=== PATIENT | male | born 1995 | race Caucasian/White ===

== ENCOUNTER 2018-06-13 00:21 | Inpatient (IN) | payer MEDICAID ==
[~2018-06-13] VITALS: Ht 172.7 cm; Wt 103.0 kg
[2018-06-13] MEDS ORDERED: QUET300T2 PO (00:47)
[2018-06-13] MEDS ORDERED: SERT50TA12 PO (00:47)
[2018-06-13 01:53] LABS: BASOPHILS % (AUTO) 1.2 % (0.0-2.0); EOSINOPHILS % (AUTO) 0.6 % (1.0-6.0); HEMATOCRIT 49.8 % (41-53); LYMPHOCYTES % (AUTO) 28.6 % (22.0-44.0); MEAN CORPUSCULAR HEMOGLOBIN 28.9 pg (26.0-34.0); MEAN CORPUSCULAR HGB CONC 36.1 G/dL (31.0-37.0); MEAN CORPUSCULAR VOLUME 80 fL (80-100); MONOCYTES % (AUTO) 9.3 % (2.0-9.0); NEUTROPHILS # (AUTO) 6.4 K/uL (1.8-7.7); NEUTROPHILS % (AUTO) 60.3 % (40.0-70.0); PLATELET COUNT (AUTO) 375 K/uL (150-450); RED BLOOD CELL COUNT(AUTO) 6.22 MIL/uL (4.50-5.90); RED CELL DISTRIBUTION WIDTH 14.8 % (11.5-14.5)
[2018-06-13 02:00] LABS: ANION GAP 13 mmol/L (8-16); CALCIUM, TOTAL 9.1 mg/dL (8.8-10.5); CARBON DIOXIDE 26 mmol/L (22-29); CHLORIDE 94 mmol/L (98-107); CREATININE 0.94 mg/dL (0.60-1.30); GLOMERULAR FILTR. RATE CALC > 60 mL/min (>60); GLUCOSE,RANDOM 373 mg/dL (70-110); POTASSIUM 4.1 mmol/L (3.5-5.1); SODIUM SERUM 133 mmol/L (136-145); UREA NITROGEN, BLOOD 15 mg/dL (7-18)
[2018-06-13 02:01] LABS: HEMOGLOBIN 17.8 g/dL (13.5-17.5)
[2018-06-13 02:06] LABS: ALBUMIN 4.3 g/dL (3.4-5.0); ALKALINE PHOSPHATASE 102 U/L (46-116)
[2018-06-13 02:41] LABS: ALANINE AMINOTRANSFERASE 85 U/L (12-78); ASPARTATE AMINOTRANSFERASE 46 U/L (15-37); TOTAL PROTEIN, SERUM 7.3 g/dL (6.4-8.2)
[2018-06-13] MEDS ORDERED: PERTUSS(ACELL),DIPH,TET VAC/PF 0.5 ML VIAL IM ONE (04:00)
[2018-06-13] MEDS ORDERED: SODIUM CHLORIDE 0.9% 1,000 ML IV ONE ×2 (04:25→04:30)
[2018-06-13 04:29] LABS: GLUCOSE,POINT OF CARE 318 MG/DL (70-110)
[2018-06-13] MEDS ORDERED: LORazepam 2 MG TABLET PO PRN (06:00)
[2018-06-13] MEDS ORDERED: HALOPERIDOL 5 MG TABLET PO PRN (06:00)
[2018-06-13 06:14] LABS: HDL CHOLESTEROL 10 mg/dL (40-60); TRIGLYCERIDES 179 mg/dL (15-150)
[2018-06-13] MEDS ORDERED: INSULIN REGULAR, HUMAN 100 UNITS/ML IVP ONE (06:15)
[2018-06-13 06:19] LABS: GLUCOSE,POINT OF CARE 301 MG/DL (70-110)
[2018-06-13 06:31] LABS: LDL CHOL (CALC.) 4 mg/dL (0-130)
[2018-06-13 06:56] LABS: CHOLESTEROL < 50 mg/dL (131-200)
[2018-06-13 08:54] LABS: GLUCOSE,POINT OF CARE 365 MG/DL (70-110)
[2018-06-13] MEDS ORDERED: INSULIN LISPRO 100 UNITS/ML SQ PRN (09:45)
[2018-06-13] MEDS ORDERED: INSULIN REGULAR, HUMAN 100 UNITS/ML SQ ONE (09:45)
[2018-06-13] MEDS ORDERED: GLUCAGON,HUMAN RECOMBINANT 1 MG VIAL IM PRN ×2 (09:45→22:15)
[2018-06-13 16:29] LABS: GLUCOSE,POINT OF CARE 342 MG/DL (70-110)
[2018-06-13 19:30] VITALS: BP 147/88
[2018-06-13 19:39] LABS: GLUCOMETER DEV NAME(LOC) BV3N.; GLUCOSE,POINT OF CARE 301 MG/DL (70-110)
[2018-06-13] MEDS ORDERED: PNEUMOCOCCAL VACCINE POLYVALENT 0.5 ML VIAL [PPSV23] IM ONE (20:15)
[2018-06-13] MEDS: ZOLPIDEM TARTRATE 10 MG TABLET PO PRN (21:40)
[2018-06-13 22:15] LABS: GLUCOMETER DEV NAME(LOC) BV3N.; GLUCOSE,POINT OF CARE 264 MG/DL (70-110)
[2018-06-14 06:10] VITALS: BP 136/88
[2018-06-14 06:16] LABS: GLUCOMETER DEV NAME(LOC) BV3N.; GLUCOSE,POINT OF CARE 201 MG/DL (70-110)
[2018-06-14] MEDS: INSULIN LISPRO 100 UNITS/ML SQ PRN ×4 (06:39→20:22)
[2018-06-14 08:41] LABS: HEMOGLOBIN A1C 9.6 % (4.5-6.2)
[2018-06-14 09:10] VITALS: BP 134/88
[2018-06-14 11:24] LABS: CHOL/HDL RATIO 16.3 (4.2-7.3); CHOLESTEROL 244 mg/dL (131-200); FREE T4 (FREE THYROXINE) 1.09 ng/dL (0.76-1.46); HDL CHOLESTEROL 15 mg/dL (40-60); TRIGLYCERIDES 1354 mg/dL (15-150)
[2018-06-14 11:50] LABS: GLUCOMETER DEV NAME(LOC) BV3N.; GLUCOSE,POINT OF CARE 331 MG/DL (70-110)
[2018-06-14 16:28] VITALS: BP 131/84
[2018-06-14 16:54] LABS: GLUCOMETER DEV NAME(LOC) BV3N.; GLUCOSE,POINT OF CARE 270 MG/DL (70-110)
[2018-06-14] MEDS: QUEtiapine FUMARATE 300 MG TABLET PO SCH (20:21)
[2018-06-14] MEDS: ZOLPIDEM TARTRATE 10 MG TABLET PO PRN (20:21)
[2018-06-14] MEDS ORDERED: SERTRALINE HCL 100 MG TABLET PO SCH (21:00)
[2018-06-14] MEDS ORDERED: CloNIDine HCL 0.1 MG TABLET PO PRN (21:15)
[2018-06-14] MEDS ORDERED: PETROLATUM,WHITE 28 GM JELLY TP PRN (21:15)
[2018-06-14] MEDS ORDERED: ACETAMINOPHEN 325 MG TABLET PO PRN (21:15)
[2018-06-14] MEDS ORDERED: BENZOCAINE/MENTHOL LOZENGE MM PRN (21:15)
[2018-06-14] MEDS ORDERED: DOCUSATE SODIUM 100 MG CAPSULE PO PRN (21:15)
[2018-06-14] MEDS ORDERED: IBUPROFEN 600 MG TABLET PO PRN (21:15)
[2018-06-14] MEDS ORDERED: MAG HYDROX/AL HYDROX/SIMETH ES 30 ML SUSPENSION UDCUP PO PRN (21:15)
[2018-06-14] MEDS ORDERED: ALBUTEROL SULFATE HFA 90 MCG/PUFF 8 GM INHALER IH PRN (21:15)
[2018-06-14] MEDS ORDERED: MAGNESIUM HYDROXIDE SUSPENSION 30 ML UDCUP PO PRN (21:15)
[2018-06-14] MEDS ORDERED: BACITRACIN 28.4 GM OINTMENT TP PRN (21:15)
[2018-06-14] MEDS ORDERED: ONDANSETRON HCL 4 MG TABLET PO PRN (21:15)
[2018-06-14] MEDS ORDERED: OMEPRAZOLE 20 MG CAPSULE PO PRN (21:15)
[2018-06-14] MEDS ORDERED: LOPERAMIDE HCL 2 MG CAPSULE PO PRN (21:15)
[2018-06-14 21:58] LABS: GLUCOMETER DEV NAME(LOC) BV3N.; GLUCOSE,POINT OF CARE 260 MG/DL (70-110)
[2018-06-15] MEDS: INSULIN LISPRO 100 UNITS/ML SQ PRN ×4 (06:29→21:12)
[2018-06-15 06:36] VITALS: BP 129/82
[2018-06-15 07:29] LABS: GLUCOMETER DEV NAME(LOC) BV3N.; GLUCOSE,POINT OF CARE 184 MG/DL (70-110)
[2018-06-15 08:10] VITALS: BP 139/79
[2018-06-15] MEDS: OMEGA-3/DHA/EPA/FISH OIL 1,000 MG CAPSULE PO SCH (09:19)
[2018-06-15 11:24] LABS: GLUCOMETER DEV NAME(LOC) BV3N.; GLUCOSE,POINT OF CARE 268 MG/DL (70-110)
[2018-06-15 16:24] VITALS: BP 114/61
[2018-06-15 17:00] LABS: GLUCOMETER DEV NAME(LOC) BV3N.; GLUCOSE,POINT OF CARE 264 MG/DL (70-110)
[2018-06-15] MEDS ORDERED: NICOTINE 21 MG/24 HOUR PATCH TD PRN (20:30)
[2018-06-15] MEDS ORDERED: SERTRALINE HCL 100 MG TABLET PO SCH (21:00)
[2018-06-15] MEDS: SIMVASTATIN 10 MG TABLET PO SCH (21:04)
[2018-06-15] MEDS: ZOLPIDEM TARTRATE 10 MG TABLET PO PRN (21:06)
[2018-06-15] MEDS: QUEtiapine FUMARATE 300 MG TABLET PO SCH (21:06)
[2018-06-15 21:19] LABS: GLUCOMETER DEV NAME(LOC) BV3N.; GLUCOSE,POINT OF CARE 229 MG/DL (70-110)
[2018-06-16 00:08] VITALS: BP 136/86
[2018-06-16] MEDS: INSULIN LISPRO 100 UNITS/ML SQ PRN ×4 (06:12→21:00)
[2018-06-16 07:09] LABS: GLUCOMETER DEV NAME(LOC) BV3N.; GLUCOSE,POINT OF CARE 178 MG/DL (70-110)
[2018-06-16 08:26] VITALS: BP 137/85
[2018-06-16 08:37] LABS: BAND NEUTROPHILS % (MANUAL) 0 % (0-5)
[2018-06-16] MEDS: OMEGA-3/DHA/EPA/FISH OIL 1,000 MG CAPSULE PO SCH (08:46)
[2018-06-16 08:52] LABS: HEMATOCRIT 44.9 % (41-53); HEMOGLOBIN 15.5 g/dL (13.5-17.5); MEAN CORPUSCULAR HEMOGLOBIN 27.7 pg (26.0-34.0); MEAN CORPUSCULAR HGB CONC 34.5 G/dL (31.0-37.0); MEAN CORPUSCULAR VOLUME 80 fL (80-100); PLATELET COUNT (AUTO) 283 K/uL (150-450); RED BLOOD CELL COUNT(AUTO) 5.59 MIL/uL (4.50-5.90); RED CELL DISTRIBUTION WIDTH 14.6 % (11.5-14.5)
[2018-06-16 09:19] LABS: ANION GAP 15 mmol/L (8-16); CALCIUM, TOTAL 9.5 mg/dL (8.8-10.5); CARBON DIOXIDE 24 mmol/L (22-29); CHLORIDE 101 mmol/L (98-107); CREATININE 0.92 mg/dL (0.60-1.30); GLOMERULAR FILTR. RATE CALC > 60 mL/min (>60); GLUCOSE,RANDOM 217 mg/dL (70-110); PHOSPHORUS 4.1 mg/dL (2.5-4.9); POTASSIUM 3.9 mmol/L (3.5-5.1); SODIUM SERUM 140 mmol/L (136-145); UREA NITROGEN, BLOOD 16 mg/dL (7-18)
[2018-06-16 09:23] LABS: BASOPHILS % (MANUAL) 1 % (0-2); EOSINOPHILS % (MANUAL) 1 % (1-6); LYMPHOCYTES % (MANUAL) 25 % (22-44); MONOCYTES % (MANUAL) 4 % (2-9); SEGMENTED NEUTROPHILS % 69 % (40-70)
[2018-06-16 11:34] LABS: GLUCOMETER DEV NAME(LOC) BV3N.; GLUCOSE,POINT OF CARE 239 MG/DL (70-110)
[2018-06-16 16:35] LABS: GLUCOMETER DEV NAME(LOC) BV3N.; GLUCOSE,POINT OF CARE 205 MG/DL (70-110)
[2018-06-16 16:53] VITALS: BP 136/80
[2018-06-16 20:54] LABS: GLUCOMETER DEV NAME(LOC) BV3N.; GLUCOSE,POINT OF CARE 228 MG/DL (70-110)
[2018-06-16] MEDS ORDERED: SERTRALINE HCL 100 MG TABLET PO SCH (21:00)
[2018-06-16] MEDS: QUEtiapine FUMARATE 300 MG TABLET PO SCH (21:44)
[2018-06-16] MEDS: SIMVASTATIN 10 MG TABLET PO SCH (21:44)
[2018-06-16] MEDS: ZOLPIDEM TARTRATE 10 MG TABLET PO PRN (21:45)
[2018-06-17 06:10] LABS: GLUCOMETER DEV NAME(LOC) BV3N.; GLUCOSE,POINT OF CARE 137 MG/DL (70-110)
[2018-06-17 08:25] VITALS: BP 136/71
[2018-06-17] MEDS: OMEGA-3/DHA/EPA/FISH OIL 1,000 MG CAPSULE PO SCH (09:20)
[2018-06-17] MEDS ORDERED: OMEG-135 PO (10:28)
[2018-06-17] MEDS ORDERED: QUET300T2 PO (10:28)
[2018-06-17] MEDS ORDERED: SIMV-259 PO (10:28)
[2018-06-17] MEDS ORDERED: SERT100T12 PO (10:28)
[2018-06-17] MEDS: INSULIN LISPRO 100 UNITS/ML SQ PRN (11:19)
[2018-06-17 11:25] LABS: GLUCOMETER DEV NAME(LOC) BV3N.; GLUCOSE,POINT OF CARE 260 MG/DL (70-110)
== END 2018-06-17 13:00 | disposition home or self-care (01) | DRG 753 ==
LOC: EMS 00:24 → B3A 16:10
PROVIDERS: ADMIT Psychiatry & Neurology Psychiatry; ATTEND Psychiatry & Neurology Psychiatry
DX: F31.4 Bipolar disorder, current episode depressed, severe, without psychotic features (principal); E11.65 Type 2 diabetes mellitus with hyperglycemia; R45.850 Homicidal ideations; S51.812A Laceration without foreign body of left forearm, initial encounter; S01.511A Laceration without foreign body of lip, initial encounter; E78.5 Hyperlipidemia, unspecified; F41.9 Anxiety disorder, unspecified; K59.00 Constipation, unspecified; F90.9 Attention-deficit hyperactivity disorder, unspecified type; F17.210 Nicotine dependence, cigarettes, uncomplicated; X78.1XXA Intentional self-harm by knife, initial encounter; Z91.19 Patient's noncompliance with other medical treatment and regimen; Y93.89 Activity, other specified; Y92.89 Other specified places as the place of occurrence of the external cause; Y99.8 Other external cause status
CPT/HCPCS: 83036; 83735; 84100; 84439; 84443; 85007; 90715; G0480; J1815; J7030